=== PATIENT | female | born 2000 | race Caucasian/White ===

== ENCOUNTER → 2020-04-13 | Outpatient (CLI) | payer OTHER | LOC: COL.RAD 08:15 | DX: R10.31 Right lower quadrant pain (principal) ==

== ENCOUNTER → 2020-04-22 | Outpatient (CLI) | payer OTHER | LOC: COL.RAD 13:27 | DX: D72.829 Elevated white blood cell count, unspecified (principal) | CPT/HCPCS: Q9967 ==